=== PATIENT | female | born 1975 | race Caucasian/White ===

== ENCOUNTER 2018-12-08 17:37 | Emergency (ER) | payer OTHER ==
[~2018-12-08] VITALS: Ht 160 cm; Wt 74.8 kg
[2018-12-08 17:44] VITALS: BP 145/94
[2018-12-08] MEDS ORDERED: PROZAC10 M1 PO (17:47)
[2018-12-08] MEDS ORDERED: XANAX 1 MG TABLE1 MG PO (18:00)
== END 2018-12-08 18:09 | disposition home or self-care (01) ==
LOC: M.ERS 17:37
DX: F41.9 Anxiety disorder, unspecified (principal); F32.9 Major depressive disorder, single episode, unspecified